=== PATIENT | male | born 1970 | race Caucasian/White ===

== ENCOUNTER → 2020-04-16 | Outpatient (CLI) | payer OTHER ==
[~2020-04-16] MED LIST: ALLEGRA ALLERG180 MG PO; ALLEGRA ALLERGY60 MG PO; APRISO0.375 GM PO; ASPIRIN81 MG PO; FOLIC ACID 1 MG1 MG PO; FOLIC ACID1 MG PO; IMDUR ER TAB 6060 MG PO; IMURAN50 MG PO; NITROGLYCERIN0.4 MG SL; PEPCID; PROTONIX40 MG PO
== END ==
LOC: CT 13:08
DX: K50.80 Crohn's disease of both small and large intestine without complications (principal); N20.0 Calculus of kidney
CPT/HCPCS: 36415; 82565; 84520; Q9967